=== PATIENT | male | born 1970 | race African-American/Black ===

== ENCOUNTER → 2020-07-20 | Outpatient (CLI) | payer OTHER ==
[~2020-07-20] MED LIST: CYCLOBENZAPRINE5 MG PO; ELIQUIS2.5 MG PO; FISH OIL 1,0001 EACH PO; HYDROCHLOROTHIA25 MG PO; LIPITOR TAB 1010 MG PO; NORCO 5-325 TA1 EACH PO; NORCO 7.5-3251 EACH PO; NORVASC10 MG PO; PERCOCET 10-321 EACH PO; PRINIVIL10 MG PO; PROVENTIL HFA6.7 GM INH; RELAFEN 750 MG750 MG PO; VITAMIN D21250 MCG PO; ZOFRAN4 MG PO
== END ==
LOC: LAB 09:18
DX: R74.8 Abnormal levels of other serum enzymes (principal)
CPT/HCPCS: 36415; 80061

== ENCOUNTER 2020-07-26 14:21 | Emergency (ER) | payer OTHER ==
[2020-07-26 15:03] LABS: HEMOGLOBIN 14.5 gm/dl (14.0-17.5); RED BLOOD COUNT 4.47 M/UL (4.20-5.50); WHITE BLOOD COUNT 10.2 K/UL (4.5-11.0)
[2020-07-26 15:29] LABS: BUN/CREATININE RATIO 10 (0-10)
== END 2020-07-26 18:45 | disposition home or self-care (01) ==
LOC: ER1 14:21
PROVIDERS: Emergency Medicine
DX: M79.672 Pain in left foot (principal); R00.0 Tachycardia, unspecified; M79.662 Pain in left lower leg; I10 Essential (primary) hypertension; J45.909 Unspecified asthma, uncomplicated; Z87.19 Personal history of other diseases of the digestive system; F17.200 Nicotine dependence, unspecified, uncomplicated
CPT/HCPCS: 36415; 73630; 80053; 81001; 83605; 83690; 83735; 84100; 85025; 87040; 87086; 93005; 93971; 99285; J7030; Q9967